=== PATIENT | female | born 1955 | race Native Hawaiian/Other Pacific Islander ===

== ENCOUNTER 2016-06-10 16:56 | Emergency (ER) | payer OTHER, MEDICARE ==
[2016-06-10 17:25] VITALS: BP 126/85; PULSE 67; RESP 18; TEMP 97.6
[2016-06-10] MEDS ORDERED: HYDROmorphone 1 MG/ML 1 ML SYRINGE IM STA (17:36)
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
== END 2016-06-10 18:12 | disposition home or self-care (01) ==
LOC: EC 16:56
DX: G89.29 Other chronic pain (principal); M54.2 Cervicalgia; Z76.0 Encounter for issue of repeat prescription; Z79.899 Other long term (current) drug therapy; Z91.041 Radiographic dye allergy status; Z87.891 Personal history of nicotine dependence; Z88.6 Allergy status to analgesic agent
CPT/HCPCS: 99283; 96372; J1170

== ENCOUNTER → 2016-06-13 | Outpatient (CLI) | payer MEDICARE, OTHER ==
[2016-06-06 10:23] VITALS: BMI 23.8
[2016-06-13 12:26] VITALS: PULSE 61; RESP 16; TEMP 97.7
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
== END | disposition home or self-care (01) ==
LOC: PNWHC3 12:00
PROVIDERS: ATTEND Anesthesiology
DX: M46.92 Unspecified inflammatory spondylopathy, cervical region (principal); Z98.1 Arthrodesis status; E11.9 Type 2 diabetes mellitus without complications; F32.9 Major depressive disorder, single episode, unspecified; I10 Essential (primary) hypertension; Z87.891 Personal history of nicotine dependence; Z79.899 Other long term (current) drug therapy; Z88.8 Allergy status to other drugs, medicaments and biological substances; F12.90 Cannabis use, unspecified, uncomplicated
CPT/HCPCS: 99211

== ENCOUNTER 2016-06-22 18:02 | Emergency (ER) | payer MEDICARE, OTHER ==
[2016-06-22 18:07] VITALS: BP 126/94; PULSE 68; RESP 20; TEMP 97.5
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
[2016-06-22] MEDS ORDERED: HYDROcodone/APAP 5-325MG 1 EACH TAB PO STA (18:31)
== END 2016-06-22 18:39 | disposition home or self-care (01) ==
LOC: EC 18:02
DX: G89.29 Other chronic pain (principal); M54.2 Cervicalgia; M79.601 Pain in right arm; Z88.6 Allergy status to analgesic agent; Z88.8 Allergy status to other drugs, medicaments and biological substances; Z91.041 Radiographic dye allergy status; Z87.891 Personal history of nicotine dependence; Z79.899 Other long term (current) drug therapy
CPT/HCPCS: 99283

== ENCOUNTER → 2016-07-08 | Outpatient (CLI) | payer MEDICARE, OTHER ==
[2016-07-08 10:47] LABS: Blood Urea Nitrogen 16 mg/dL (7-17); Non-African American GFR(MDRD) >60 (>60 ml/min/1.73 sqM)
== END | disposition home or self-care (01) ==
LOC: LABWHC1 09:53
PROVIDERS: ATTEND Orthopaedic Surgery Orthopaedic Surgery of the Spine
DX: Z01.812 Encounter for preprocedural laboratory examination (principal); N28.9 Disorder of kidney and ureter, unspecified
CPT/HCPCS: 36415; 82565; 84520

== ENCOUNTER 2016-07-09 17:45 | Emergency (ER) | payer MEDICARE, OTHER ==
[2016-07-09 18:06] VITALS: TEMP 98.1
[2016-07-09] MEDS ORDERED: BUTALB/APAP/CAFF 50-325-40MG TAB PO STA (19:33)
[2016-07-09] MEDS ORDERED: DEXAMETHASONE 4 MG TAB PO STA (19:33)
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
[2016-07-09 20:02] VITALS: BP 136/87; PULSE 88; RESP 18
== END 2016-07-09 20:05 | disposition home or self-care (01) ==
LOC: EC 17:45
DX: G44.209 Tension-type headache, unspecified, not intractable (principal); M54.2 Cervicalgia; G89.29 Other chronic pain; M25.521 Pain in right elbow; Z79.899 Other long term (current) drug therapy; Z88.6 Allergy status to analgesic agent; Z91.041 Radiographic dye allergy status; Z88.8 Allergy status to other drugs, medicaments and biological substances; Z87.891 Personal history of nicotine dependence
CPT/HCPCS: 99283; J8540

== ENCOUNTER → 2016-08-16 | Outpatient (CLI) | payer MEDICARE ==
--- NOTE | 2016-08-19 08:23 | MM ---
Reason for exam: clinical finding. Last mammogram was performed 2 years and 8 months ago. History: Patient is postmenopausal. Family history of premenopausal breast cancer in mother at age 30. Indicated problem(s): pain in the right breast. Physical Findings: Nurse did not find any significant physical abnormalities on exam. MG 3D Diag Mammo W/Cad GERARD Bilateral CC and MLO view(s) were taken. Prior study comparison: December 06, 2013, bilateral MG screening mammo w CAD. May 19, 2009, bilateral digital screening mammogram. The breast tissue is heterogeneously dense. This may lower the sensitivity of mammography. No significant new findings when compared with previous films. These results were verbally communicated with the patient and result sheet given to the patient on 08/16/16. ASSESSMENT: Benign, BI-RAD 2 RECOMMENDATION: Routine screening mammogram of both breasts in 1 year.
== END | disposition home or self-care (01) ==
LOC: RADMAMWWP 12:49
PROVIDERS: ATTEND Family Medicine
DX: N64.4 Mastodynia (principal); E04.1 Nontoxic single thyroid nodule; R07.9 Chest pain, unspecified
CPT/HCPCS: G0204; G0279

== ENCOUNTER → 2016-08-16 | Outpatient (CLI) | payer MEDICARE ==
[2016-08-16 14:05] LABS: Basophils # (A) 0.1 k/uL (0-0.2); Basophils % (A) 1 %; CH 33.2; CHCM 32.8; Eosinophils # (A) 0.2 k/uL (0-0.7); Eosinophils % (A) 2 %; HCT 47.9 % (34.0-46.0); HDW 2.22; HGB 15.3 gm/dL (11.4-16.0); Luc # (Auto) 0.17; Luc % (Auto) 2; Lymphocytes # (A) 1.8 k/uL (1.0-4.8); Lymphocytes % (A) 25 %; MCH 32.3 pg (25.0-35.0); MCHC 31.8 g/dL (31.0-37.0); MCV 101.6 fL (80.0-100.0); Mean Platelet Volume 7.3; Monocytes # (A) 0.4 k/uL (0-1.0); Monocytes % (A) 5 %; Neutrophils # (A) 4.7 k/uL (1.3-7.7); Neutrophils % (A) 65 %; RBC 4.72 m/uL (3.80-5.40); RDW 11.9 % (11.5-15.5); WBC 7.3 k/uL (3.8-10.6); WBC (Perox) 7.65
[2016-08-16 14:23] LABS: ALT 40 U/L (9-52); AST 40 U/L (14-36); Alkaline Phosphatase 71 U/L (38-126); Anion Gap 11 mmol/L; Blood Urea Nitrogen 16 mg/dL (7-17); Calcium 9.5 mg/dL (8.4-10.2); Carbon Dioxide 30 mmol/L (22-30); Chloride 101 mmol/L (98-107); Glucose 114 mg/dL (74-99); Non-African American GFR(MDRD) >60 (>60 ml/min/1.73 sqM); Potassium 4.2 mmol/L (3.5-5.1); Sodium 142 mmol/L (137-145); Total Bilirubin 0.7 mg/dL (0.2-1.3); Total Protein 7.3 g/dL (6.3-8.2)
== END | disposition home or self-care (01) ==
LOC: LABWHC1 13:45
PROVIDERS: ATTEND Family Medicine
DX: E04.1 Nontoxic single thyroid nodule (principal); R07.9 Chest pain, unspecified; Z79.899 Other long term (current) drug therapy
CPT/HCPCS: 36415; 80053; 84443; 85025

== ENCOUNTER → 2016-08-20 | Outpatient (CLI) | payer MEDICARE ==
--- NOTE | 2016-08-20 20:37 | US ---
EXAMINATION TYPE: US thyroid st tissue head/neck DATE OF EXAM: 08/20/2016 3:07 PM COMPARISON: MRI on PACS CLINICAL HISTORY: E04.1 Nontoxic single thyroid nodule. MRI showed nodule GLAND SIZE: Right Lobe: 4.5 x 1.8 x 2.1 cm Overall Parenchyma: homogenous Left Lobe: 4.4 x 1.6 x 1.6 cm cm Overall Parenchyma: homogeneous Isthmus Thickness: 0.3 cm NODULES RIGHT: # of nodules measured on right: 3 1. 1.1 X 1.3 x 0.9 cm hypoechoic solid nodule at the upper pole with well-defined margins. This no dule is wider than tall and shows intranodular vascularity. Prior size: no prior 2. 0.8 X 0.7 x 0.7 cm hypoechoic solid nodule at the upper pole with well-defined margins. This nod ule is taller than wide and shows intranodular vascularity. Prior size: no prior 3. 1.1 X 0.7 x 0.6 cm hypoechoic complex nodule at the lower pole with well-defined margins. This n odule is taller than wide and shows intranodular vascularity. Prior size: no prior LEFT: # of nodules measured on left: 1 1. 0.4 X 0.4 x 0.3 cm hypoechoic solid nodule at the upper pole with well-defined margins. This no dule is wider than tall and shows no intranodular vascularity. Prior size: no prior ISTHMUS: # of nodules measured in the isthmus: 0 Findings: Bilateral nodules seen. Multiple subcentimeter hypoechoic lesion seen throughout left lobe. IMPRESSION: 1. There are 3 nodules involving the right lobe tube which measure greater than a centimeter. 2. Multiple subcentimeter left-sided thyroid nodules
== END | disposition home or self-care (01) ==
LOC: RADUSWWP 14:25
PROVIDERS: ATTEND Family Medicine
DX: E04.2 Nontoxic multinodular goiter (principal)
CPT/HCPCS: 76536

== ENCOUNTER → 2016-09-06 | Outpatient (CLI) | payer MEDICARE ==
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
--- NOTE | 2016-09-06 14:49 | MR ---
MR lumbar spine wo con Lumbago Multiplanar, multiecho imaging of the lumbar spine was obtained without contrast on a 3 Magda magnet. REFERENCE:None. FINDINGS: Paraspinal soft tissues are normal. There is a mild S-shaped scoliosis convex to the right thoracic region and to the left in the lumbar region. Vertebral body height and alignment are maintained. Cord signal is maintained. The conus ends normally at the level of the mid body of L1. At T12-L1, there is mild hypertrophic changes within the facets. At L1-2, there is mild hypertrophic changes within the facets. At L2-3, the intervertebral foramina are patent. There is a broad-based disc protrusion deforming the thecal sac. There are hypertrophic changes in the facets. There is mild central canal stenosis. At L3-4, there is severe disc space loss. There is mild, bilateral intervertebral foraminal narrowing . There is hypertrophic spondylosis anteriorly and posteriorly. This hypertrophic changes in the face ts. There is mild trefoiling of the thecal sac. At L4-5, there is disc space loss. There is a broad-based disc displacement. The intervertebral dano jordyn are reasonably well-maintained. There are hypertrophic changes in the facets. There is moderate c entral canal compromise. At L5-S1, there is hypertrophic change within the facets. IMPRESSION: 1. DIFFUSE DEGENERATIVE DISC DISEASE AND FACET ARTHROPATHY. 2. BILATERAL INTERVERTEBRAL FORAMINAL NARROWING, L3-4. 3. BROAD-BASED DISC PROTRUSION, L2-3. 4. VARYING DEGREES OF CENTRAL CANAL COMPROMISE MOST MARKED AT L4-5.
== END | disposition home or self-care (01) ==
LOC: RADMRIMAIN 13:12
PROVIDERS: ATTEND Psychiatry & Neurology Pain Medicine
DX: R90.82 White matter disease, unspecified (principal); M99.73 Connective tissue and disc stenosis of intervertebral foramina of lumbar region; M51.26 Other intervertebral disc displacement, lumbar region; M51.36 Other intervertebral disc degeneration, lumbar region; M46.96 Unspecified inflammatory spondylopathy, lumbar region
CPT/HCPCS: 70553; 72148; A9577

== ENCOUNTER 2016-11-05 11:45 | Day surgery (SDC) | payer MEDICARE ==
[2016-11-05 12:42] VITALS: RESP 14; TEMP 97.7
[2016-11-05] MEDS ORDERED: ALPRAZolam 0.5 MG TAB PO STA (12:52)
[2016-11-05 14:00] VITALS: BP 133/78; PULSE 62
--- NOTE | 2016-11-05 14:58 | US ---
EXAMINATION TYPE: US FNA thyroid DATE OF EXAM: 11/05/2016 COMPARISON: NONE HISTORY: Thyroid nodule. Maximal barrier technique was utilized. After informed consent, skin overlying the lesion was locali zed with ultrasound and the overlying skin prepped and draped. Ultrasound was utilized using sterile technique. Lidocaine was used for local anesthesia. Four passes with a 25-gauge needle were made into the nodule and aspirated specimen was submitted to cytology. Following the procedure hemostasis ach ieved. No immediate complication. The patient discharged in stable condition. IMPRESSION: STATUS POST ULTRASOUND GUIDED FINE NEEDLE ASPIRATION OF THYROID NODULE, PATHOLOGY IS PEND ING. THIS PROCEDURE WAS PERFORMED BY THE UNDERSIGNED.
--- NOTE | 2016-11-05 15:01 | US ---
EXAMINATION TYPE: US fine needle aspiration DATE OF EXAM: 11/05/2016 COMPARISON: NONE HISTORY: Thyroid nodule. Maximal barrier technique was utilized. After informed consent, skin overlying the lesion was locali zed with ultrasound and the overlying skin prepped and draped. Ultrasound was utilized using sterile technique. Lidocaine was used for local anesthesia. Four passes with a 25-gauge needle were made int o the the second lower pole right lobe thyroid nodule and aspirated specimen was submitted to cytolog y. Following the procedure hemostasis achieved. No immediate complication. The patient discharged in stable condition. IMPRESSION: STATUS POST ULTRASOUND GUIDED FINE NEEDLE ASPIRATION OF THYROID NODULE, PATHOLOGY IS PEND ING. THIS PROCEDURE WAS PERFORMED BY THE UNDERSIGNED.
== END 2016-11-05 14:03 | disposition home or self-care (01) ==
LOC: RADPROMAIN 11:45
PROVIDERS: ATTEND Surgery
DX: E04.2 Nontoxic multinodular goiter (principal)
CPT/HCPCS: 10022; 76942; 88173; 88305

== ENCOUNTER → 2016-12-04 | Outpatient (CLI) | payer MEDICARE ==
[2016-12-04 11:10] LABS: C Reactive Protein <5.0 mg/L (<10.0)
[2016-12-04 11:57] LABS: Vitamin B12 372 pg/mL (239-931)
[2016-12-06 14:20] LABS: Lyme IgG/IgM 0.1 Index; Lyme IgG/IgM Interp NEGATIVE (NEGATIVE)
== END | disposition home or self-care (01) ==
LOC: LABWHC1 10:02
PROVIDERS: ATTEND Psychiatry & Neurology Pain Medicine
DX: R42 Dizziness and giddiness (principal); M62.81 Muscle weakness (generalized); R53.83 Other fatigue; M19.90 Unspecified osteoarthritis, unspecified site; Z79.899 Other long term (current) drug therapy
CPT/HCPCS: 36415; 82607; 83605; 84439; 84443; 84481; 85652; 86140; 86618; 87390

== ENCOUNTER 2016-12-23 17:36 | Emergency (ER) | payer MEDICARE, OTHER ==
[2016-12-23 18:12] VITALS: BP 125/66; PULSE 63; RESP 16; TEMP 98.3
--- NOTE | 2016-12-23 19:09 | XR ---
EXAMINATION TYPE: XR elbow complete RT DATE OF EXAM: 12/23/2016 COMPARISON: NONE HISTORY: Pain TECHNIQUE: 3 views FINDINGS: I see no fracture nor dislocation. Joint spaces are normal. There is no sign of joint effus ion. IMPRESSION: Normal right elbow.
--- NOTE | 2016-12-23 19:09 | XR ---
EXAMINATION TYPE: XR forearm RT DATE OF EXAM: 12/23/2016 COMPARISON: NONE HISTORY: Pain TECHNIQUE: 2 views FINDINGS: I see no fracture nor dislocation. Wrist joint and elbow joint appear intact. IMPRESSION: Negative right forearm exam.
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
== END 2016-12-23 19:25 | disposition home or self-care (01) ==
LOC: EC 17:36
DX: S50.01XA Contusion of right elbow, initial encounter (principal); S50.11XA Contusion of right forearm, initial encounter; I10 Essential (primary) hypertension; Z87.891 Personal history of nicotine dependence; Z79.891 Long term (current) use of opiate analgesic; Z79.899 Other long term (current) drug therapy; Z88.6 Allergy status to analgesic agent; Z91.041 Radiographic dye allergy status; Z91.048 Other nonmedicinal substance allergy status; Z87.39 Personal history of other diseases of the musculoskeletal system and connective tissue; Z98.890 Other specified postprocedural states; W18.09XA Striking against other object with subsequent fall, initial encounter; Y92.89 Other specified places as the place of occurrence of the external cause; Y93.89 Activity, other specified
CPT/HCPCS: 99283

== ENCOUNTER → 2017-03-17 | Outpatient (CLI) | payer MEDICARE ==
[2017-03-17 12:10] LABS: CH 34.3; CHCM 33.6; HCT 45.9 % (34.0-46.0); HDW 2.21; HGB 15.1 gm/dL (11.4-16.0); MCH 33.7 pg (25.0-35.0); MCHC 32.9 g/dL (31.0-37.0); MCV 102.6 fL (80.0-100.0); Macrocytosis Slight; Mean Platelet Volume 8.6; RBC 4.48 m/uL (3.80-5.40); WBC 7.8 k/uL (3.8-10.6)
[2017-03-17 13:55] LABS: ALT 39 U/L (9-52); AST 26 U/L (14-36); Alkaline Phosphatase 86 U/L (38-126); Anion Gap 8 mmol/L; Blood Urea Nitrogen 9 mg/dL (7-17); Calcium 9.8 mg/dL (8.4-10.2); Carbon Dioxide 28 mmol/L (22-30); Chloride 103 mmol/L (98-107); Glucose 95 mg/dL (74-99); Non-African American GFR(MDRD) >60 (>60 ml/min/1.73 sqM); Potassium 4.4 mmol/L (3.5-5.1); Sodium 139 mmol/L (137-145); Total Bilirubin 0.6 mg/dL (0.2-1.3)
[2017-03-17 14:25] LABS: Vitamin B12 289 pg/mL (239-931)
[2017-03-17 14:51] LABS: Hemoglobin A1C 5.6 % (4.2-6.1)
== END | disposition home or self-care (01) ==
LOC: LABWHC1 11:34
PROVIDERS: ATTEND Psychiatry & Neurology Pain Medicine
DX: E55.9 Vitamin D deficiency, unspecified (principal); G62.9 Polyneuropathy, unspecified
CPT/HCPCS: 36415; 80053; 82306; 82607; 83036; 85027

== ENCOUNTER → 2017-07-18 | Outpatient (CLI) | payer MEDICARE | END | disposition home or self-care (01) | LOC: LABWHC1 10:43 | PROVIDERS: ATTEND Psychiatry & Neurology Neurology | DX: E55.9 Vitamin D deficiency, unspecified (principal) | CPT/HCPCS: 36415; 82306 ==

== ENCOUNTER 2017-09-13 09:08 | Emergency (ER) | payer MEDICARE ==
[2017-09-13 09:16] VITALS: BP 130/74; PULSE 61; RESP 18; TEMP 96.7
--- NOTE | 2017-09-13 09:47 | ED ---
General Adult HPI - General Chief complaint: Eye Problems Stated complaint: foreign body in lt eye Time Seen by Provider: 09/13/17 09:25 Source: patient, RN notes reviewed Mode of arrival: ambulatory Limitations: no limitations - History of Present Illness Initial comments: Patient 62-year-old female presenting to the emergency room today with a chief complaint of itching to the left eye and then was seen some blood. Patient states that she has no vision changes. She states it was itchy this morning she was scratching at the area rubbing it. She's been noticed that there is some blood. Patient denies any other complaints or symptoms. Patient denies any recent fever, chills, shortness of breath, chest pain, back pain, abdominal pain, nausea or vomiting, numbness or tingling, headaches or visual changes, or any other complaints. - Related Data Home Medications Medication Instructions Recorded Confirmed Gabapentin [Neurontin] 600 mg PO HS 06/10/16 04/04/17 Atenolol 100 mg PO DAILY 10/17/16 04/04/17 Cyclobenzaprine [Flexeril] 10 mg PO TID 10/17/16 04/04/17 HYDROcodone/APAP 5-325MG [[place] 1 tab PO BID 10/17/16 04/04/17 5-325] Ranitidine HCl [Zantac] 150 mg PO BID 04/04/17 04/04/17 Allergies Allergy/AdvReac Type Severity Reaction Status Date / Time aspirin Allergy Rash/Hives/ Verified 09/13/17 09:16 Swelling Iodinated Contrast- Oral and Allergy Rash/Hives Verified 09/13/17 09:16 IV Dye [Iodinated Contrast Media - IV Dye] iodine Allergy Rash/Hives Verified 09/13/17 09:16 ibuprofen [From Motrin] AdvReac Rapid Verified 09/13/17 09:16 Heart Rate Review of Systems ROS Statement: Those systems with pertinent positive or pertinent negative responses have been documented in the HPI. ROS Other: All systems not noted in ROS Statement are negative. Past Medical History Past Medical History: Diabetes Mellitus, Hypertension, Vascular Disorder Additional Past Medical History / Comment(s): diabetes- diet controlled, pain: rt side of chest to back,rt arm, rt collar bone, elbow,shoulder,spine, migraines , possible MS currently being worked up, possible lymes disease. History of Any Multi-Drug Resistant Organisms: None Reported Past Surgical History: Cholecystectomy, Hysterectomy Additional Past Surgical History / Comment(s): elbow surgery, foot surgery bunion and hammer toe surgery,neck fusion Past Anesthesia/Blood Transfusion Reactions: No Reported Reaction Past Psychological History: Depression Smoking Status: Former smoker Past Alcohol Use History: None Reported Past Drug Use History: None Reported - Past Family History Mother Family Medical History: Cancer Additional Family Medical History / Comment(s): breast cancer Brother(s) Family Medical History: Cancer Additional Family Medical History / Comment(s): 1st brother-kidney, lung cancer , 2nd brother blood cancer General Exam - General Exam Comments Initial Comments: General: The patient is awake and alert, in no distress, and does not appear acutely ill. Eye: Pupils are equal, round and reactive to light, extra-ocular movements are intact. No nystagmus. Patient's right conjunctiva is clear. Left conjunctiva does show a subconjunctival hemorrhage on the lateral side. Non-circumferential Ears, nose, mouth and throat: There are moist mucous membranes and no oral lesions. Neck: The neck is supple, there is no tenderness or JVD. Musculoskeletal: Normal ROM, no tenderness. Strength 5/5. Sensation intact. Pulses equal bilaterally 2+. Neurological: A&O x 3. CN II-XII intact, There are no obvious motor or sensory deficits. Coordination appears grossly intact. Speech is normal. Skin: Skin is warm and dry and no rashes or lesions are noted. Psychiatric: Cooperative, appropriate mood & affect, normal judgment. Limitations: no limitations Course Vital Signs 09/13/17 09:14 Temperature 96.7 F L Pulse Rate 61 Respiratory 18 Rate Blood Pressure 130/74 O2 Sat by Pulse 97 Oximetry Medical Decision Making - Medical Decision Making Patient physical exam findings are consistent with a subconjunctival hemorrhage. There is no visual changes. Grossly intact. Patient advised to return if any symptoms increase or worsen. Disposition Clinical Impression: Subconjunctival hemorrhage Disposition: HOME SELF-CARE Condition: Good Instructions: Subconjunctival Hemorrhage (ED) Additional Instructions: Please return to emergency room if any symptoms increase worsen or for any other concerns. Referrals: John Redd Jr, DO [Primary Care Provider] - 1-2 days Time of Disposition: 09:46
== END 2017-09-13 09:59 | disposition home or self-care (01) ==
LOC: EC 09:08
DX: H11.32 Conjunctival hemorrhage, left eye (principal); I10 Essential (primary) hypertension; Z87.891 Personal history of nicotine dependence; Z79.891 Long term (current) use of opiate analgesic; Z79.899 Other long term (current) drug therapy; Z88.6 Allergy status to analgesic agent; Z91.041 Radiographic dye allergy status; Z88.8 Allergy status to other drugs, medicaments and biological substances
CPT/HCPCS: 99283

== ENCOUNTER → 2017-11-13 | Outpatient (CLI) | payer MEDICARE ==
[2017-11-13 15:20] LABS: Albumin 4.1 g/dL (3.5-5.0); Calcium 9.4 mg/dL (8.4-10.2); Potassium 3.7 mmol/L (3.5-5.1); Total Bilirubin 0.7 mg/dL (0.2-1.3); Total Protein 6.6 g/dL (6.3-8.2)
== END | disposition home or self-care (01) ==
LOC: LABWHC1 14:23
PROVIDERS: ATTEND Psychiatry & Neurology Pain Medicine
DX: M79.1 Myalgia (principal)
CPT/HCPCS: 36415; 80053; 82550

== ENCOUNTER → 2017-11-21 | Outpatient (CLI) | payer MEDICARE ==
--- NOTE | 2017-11-25 10:51 | P.ARTDOP ---
Arterial Doppler Upper EXTREMITY ARTERIAL DOPPLER: DATE OF SERVICE: 11/21/2017 Reason for study: Upper extremity numbness. Doppler waveforms: Multiphasic bilaterally throughout. Pulse volume recording: Normal configuration. Pressure gradients: No significant right to left or segmental pressure gradients. Impression: Normal study.
== END | disposition home or self-care (01) ==
LOC: RADUSWWP 14:22
PROVIDERS: ATTEND Psychiatry & Neurology Neurology
DX: R20.2 Paresthesia of skin (principal)
CPT/HCPCS: 93923

== ENCOUNTER 2019-02-12 10:27 | Emergency (ER) | payer MEDICARE ==
[2019-02-12 10:33] VITALS: RESP 18
[2019-02-12] MEDS ORDERED: ONDANSETRON 4 MG/2 ML VIAL IVP STA (10:59)
[2019-02-12] MEDS ORDERED: MORPHINE SULFATE 4 MG/ML SYRINGE IVP STA (10:59)
[2019-02-12] MEDS ORDERED: SODIUM CHLORIDE 0.9% 1,000 ML IV STA (11:00)
--- NOTE | 2019-02-12 11:03 | ED ---
General Adult HPI - General Chief complaint: Urogenital Stated complaint: back pain Time Seen by Provider: 02/12/19 10:36 Source: patient Mode of arrival: ambulatory Limitations: no limitations - History of Present Illness Initial comments: Patient is a 64-year-old female presenting to the emergency Department with complaints of right-sided low back pain that has been intermittent for 1 week. Patient states she has a history of kidney stones and this pain feels similar. Patient states she does have a history of lumbar DDD but states this pain feels different than her normal pain. Patient states she took a [place] this morning it did not help with her symptoms. Patient denies any fever, chills, nausea, vomiting. Patient does admit to an increase in urinary frequency for the last week. Patient denies any burning or blood in urine. Patient has been having regular bowel movements. Patient has no other complaints at this time. Upon arrival to ER, BP is 169/87, rest of vital signs are within normal limits. - Related Data Home Medications Medication Instructions Recorded Confirmed Gabapentin [Neurontin] 600 mg PO HS 06/10/16 04/04/17 Atenolol 100 mg PO DAILY 10/17/16 04/04/17 Cyclobenzaprine [Flexeril] 10 mg PO TID 10/17/16 04/04/17 HYDROcodone/APAP 5-325MG [[place] 1 tab PO BID 10/17/16 04/04/17 5-325] Ranitidine HCl [Zantac] 150 mg PO BID 04/04/17 04/04/17 Allergies Allergy/AdvReac Type Severity Reaction Status Date / Time aspirin Allergy Rash/Hives/ Verified 02/12/19 10:33 Swelling Iodinated Contrast- Oral and Allergy Rash/Hives Verified 02/12/19 10:33 IV Dye [Iodinated Contrast Media - IV Dye] iodine Allergy Rash/Hives Verified 02/12/19 10:33 ibuprofen [From Motrin] AdvReac Rapid Verified 02/12/19 10:33 Heart Rate Review of Systems ROS Statement: Those systems with pertinent positive or pertinent negative responses have been documented in the HPI. ROS Other: All systems not noted in ROS Statement are negative. Past Medical History Past Medical History: Diabetes Mellitus, Hypertension, Vascular Disorder Additional Past Medical History / Comment(s): diabetes- diet controlled, pain: rt side of chest to back,rt arm, rt collar bone, elbow,shoulder,spine, migraine s, kidney stones History of Any Multi-Drug Resistant Organisms: None Reported Past Surgical History: Cholecystectomy, Hysterectomy Additional Past Surgical History / Comment(s): elbow surgery, foot surgery bunion and hammer toe surgery,neck fusion Past Anesthesia/Blood Transfusion Reactions: No Reported Reaction Past Psychological History: Depression Smoking Status: Former smoker Past Alcohol Use History: None Reported Past Drug Use History: None Reported - Past Family History Mother Family Medical History: Cancer Additional Family Medical History / Comment(s): breast cancer Brother(s) Family Medical History: Cancer Additional Family Medical History / Comment(s): 1st brother-kidney, lung cancer, 2nd brother blood cancer General Exam - General Exam Comments Initial Comments: GENERAL: Well-appearing, well-nourished and in no acute distress. HEAD: Atraumatic, normocephalic. EYES: Pupils equal round and reactive to light, extraocular movements intact, sclera anicteric, conjunctiva are normal. ENT: TMs normal, nares patent, oropharynx clear without exudates. Moist mucous membranes. NECK: Normal range of motion, supple without lymphadenopathy or JVD. LUNGS: Breath sounds clear to auscultation bilaterally and equal. No wheezes rales or rhonchi. HEART: Regular rate and rhythm without murmurs, rubs or gallops. ABDOMEN: Mild tenderness to palpation in the suprapubic and right lower quadrant. Soft, normoactive bowel sounds. No guarding, no rebound. No masses appreciated. : Deferred EXTREMITIES: Normal range of motion, no pitting or edema. No clubbing or cyanosis. Normal trunk range of motion. Pain with palpation in the right CVA area, right lumbar paraspinals. NEUROLOGICAL: Cranial nerves II through XII grossly intact. Normal speech, normal gait. PSYCH: Normal mood, normal affect. SKIN: Warm, Dry, normal turgor, no rashes or lesions noted. Limitations: no limitations Course Vital Signs 02/12/19 02/12/19 10:28 12:41 Temperature 97.7 F 98 F Pulse Rate 52 L 65 Respiratory 18 18 Rate Blood Pressure 169/87 141/90 O2 Sat by Pulse 99 98 Oximetry Medical Decision Making - Medical Decision Making Patient is a 64-year-old female presenting with right-sided low back pain and flank pain has been intermittent for 1 week. Patient admits to history of kidney stones. Patient also has history of lumbar DDD. On exam patient has tenderness of the right flank and right lumbar paraspinals. Patient has mild t enderness suprapubic and right lower quadrant. CBC, CMP, lactic acid are all within normal limits. UA shows very small amount of blood, no signs of infection. CT the abdomen shows a 3 mm nonobstructing renal right calculus. A 6 mm lesion on the left kidney most likely a cyst. Diverticulosis without acute diverticulitis. Discussed with patient that her pains most likely due to muscle skeletal strain possible renal stone pain. Patient received pain medication and reports improvement in symptoms. Patient will continue with her pain medication at home and increase her fluid intake. Patient is stable for discharge at this time. Return parameters were discussed with the patient she verbalized understanding. Case discussed with Dr. Jimenez. - Lab Data Result diagrams: 02/12/19 11:08 02/12/19 11:08 Lab Results 02/12/19 02/12/19 02/12/19 Range/Units 11:08 11:08 11:08 WBC 8.5 (3.8-10.6) k/uL RBC 4.94 (3.80-5.40) m/uL Hgb 16.3 H (11.4-16.0) gm/dL Hct 48.8 H (34.0-46.0) % MCV 98.8 (80.0-100.0) fL MCH 33.0 (25.0-35.0) pg MCHC 33.4 (31.0-37.0) g/dL RDW 13.8 (11.5-15.5) % Plt Count 181 (150-450) k/uL Neutrophils % 66 % Lymphocytes % 23 % Monocytes % 6 % Eosinophils % 3 % Basophils % 1 % Neutrophils # 5.6 (1.3-7.7) k/uL Lymphocytes # 2.0 (1.0-4.8) k/uL Monocytes # 0.5 (0-1.0) k/uL Eosinophils # 0.2 (0-0.7) k/uL Basophils # 0.1 (0-0.2) k/uL Sodium 140 (137-145) mmol/L Potassium 4.5 (3.5-5.1) mmol/L Chloride 105 (98-107) mmol/L Carbon Dioxide 26 (22-30) mmol/L Anion Gap 9 mmol/L BUN 16 (7-17) mg/dL Creatinine 0.89 (0.52-1.04) mg/dL Est GFR (CKD-EPI)AfAm 79 (>60 ml/min/1.73 sqM) Est GFR (CKD-EPI)NonAf 69 (>60 ml/min/1.73 sqM) Glucose 111 H (74-99) mg/dL Plasma Lactic Acid Daniel 1.0 (0.7-2.0) mmol/L Calcium 10.0 (8.4-10.2) mg/dL Total Bilirubin 0.9 (0.2-1.3) mg/dL AST 27 (14-36) U/L ALT 22 (9-52) U/L Alkaline Phosphatase 64 (38-126) U/L Total Protein 7.4 (6.3-8.2) g/dL Albumin 4.4 (3.5-5.0) g/dL Urine Color Urine Appearance (Clear) Urine pH (5.0-8.0) Ur Specific [place] (1.001-1.035) Urine Protein (Negative) Urine Glucose (UA) (Negative) Urine Ketones (Negative) Urine Blood (Negative) Urine Nitrite (Negative) Urine Bilirubin (Negative) Urine Urobilinogen (<2.0) mg/dL Ur Leukocyte Esterase (Negative) Urine RBC (0-5) /hpf Urine WBC (0-5) /hpf Ur Squamous Epith Cells (0-4) /hpf Urine Mucus (None) /hpf 02/12/19 Range/Units 11:08 WBC (3.8-10.6) k/uL RBC (3.80-5.40) m/uL Hgb (11.4-16.0) gm/dL Hct (34.0-46.0) % MCV (80.0-100.0) fL MCH (25.0-35.0) pg MCHC (31.0-37.0) g/dL RDW (11.5-15.5) % Plt Count (150-450) k/uL Neutrophils % % Lymphocytes % % Monocytes % % Eosinophils % % Basophils % % Neutrophils # (1.3-7.7) k/uL Lymphocytes # (1.0-4.8) k/uL Monocytes # (0-1.0) k/uL Eosinophils # (0-0.7) k/uL Basophils # (0-0.2) k/uL Sodium (137-145) mmol/L Potassium (3.5-5.1) mmol/L Chloride (98-107) mmol/L Carbon Dioxide (22-30) mmol/L Anion Gap mmol/L BUN (7-17) mg/dL Creatinine (0.52-1.04) mg/dL Est GFR (CKD-EPI)AfAm (>60 ml/min/1.73 sqM) Est GFR (CKD-EPI)NonAf (>60 ml/min/1.73 sqM) Glucose (74-99) mg/dL Plasma Lactic Acid Daniel (0.7-2.0) mmol/L Calcium (8.4-10.2) mg/dL Total Bilirubin (0.2-1.3) mg/dL AST (14-36) U/L ALT (9-52) U/L Alkaline Phosphatase (38-126) U/L Total Protein (6.3-8.2) g/dL Albumin (3.5-5.0) g/dL Urine Color Light Yellow Urine Appearance Clear (Clear) Urine pH 5.5 (5.0-8.0) Ur Specific [place] 1.008 (1.001-1.035) Urine Protein Negative (Negative) Urine Glucose (UA) Negative (Negative) Urine Ketones Negative (Negative) Urine Blood Small H (Negative) Urine Nitrite Negative (Negative) Urine Bilirubin Negative (Negative) Urine Urobilinogen <2.0 (<2.0) mg/dL Ur Leukocyte Esterase Negative (Negative) Urine RBC 1 (0-5) /hpf Urine WBC <1 (0-5) /hpf Ur Squamous Epith Cells 2 (0-4) /hpf Urine Mucus Rare H (None) /hpf Disposition Clinical Impression: Renal calculus, right, Low back pain Disposition: HOME SELF-CARE Condition: Stable Instructions (If sedation given, give patient instructions): Acute Low Back Pain (ED) Additional Instructions: Please return to the Emergency Department if symptoms worsen or any other concerns. Continue to increase fluids. Use NSAIDs as discussed for pain relief. Trial of heat and ice the areas well. Follow-up with back doctor as discussed. Is patient prescribed a controlled substance at d/c from ED?: No Referrals: John Redd Jr, DO [Primary Care Provider] - 1-2 days
[2019-02-12 11:36] LABS: Basophils # (A) 0.1 k/uL (0-0.2); Basophils % (A) 1 %; Eosinophils # (A) 0.2 k/uL (0-0.7); Eosinophils % (A) 3 %; HCT 48.8 % (34.0-46.0); HGB 16.3 gm/dL (11.4-16.0); Lymphocytes % (A) 23 %; MCHC 33.4 g/dL (31.0-37.0); MCV 98.8 fL (80.0-100.0); Mean Platelet Volume 8.5; Monocytes # (A) 0.5 k/uL (0-1.0); Monocytes % (A) 6 %; Neutrophils # (A) 5.6 k/uL (1.3-7.7); Neutrophils % (A) 66 %; Platelet Count 181 k/uL (150-450); RBC 4.94 m/uL (3.80-5.40); RDW 13.8 % (11.5-15.5); WBC 8.5 k/uL (3.8-10.6)
[2019-02-12 11:39] LABS: Albumin 4.4 g/dL (3.5-5.0); Potassium 4.5 mmol/L (3.5-5.1); Total Bilirubin 0.9 mg/dL (0.2-1.3); Total Protein 7.4 g/dL (6.3-8.2)
[2019-02-12 11:42] LABS: Appearance,Urine Clear (Clear); Bilirubin,Urine Negative (Negative); Blood,Urine Small (Negative); Color,Urine Light Yellow; Glucose,Urine (UA) Negative (Negative); Ketones,Urine Negative (Negative); Leukocyte Esterase,Urine Negative (Negative); Mucus,Urine Rare /hpf; Nitrite,Urine Negative (Negative); PH, Urine 5.5 (5.0-8.0); Protein,Urine Negative (Negative); RBC,Urine 1 /hpf (0-5); Specific Gravity,Urine 1.008 (1.001-1.035); Squamous Epithelial Cell,Urine 2 /hpf (0-4); Urobilinogen,Urine <2.0 mg/dL (<2.0)
--- NOTE | 2019-02-12 11:45 | CT ---
EXAMINATION TYPE: CT abdomen pelvis wo con DATE OF EXAM: 02/12/2019 COMPARISON: None HISTORY: 64-year-old female bilateral flank pain, frequent urination CT DLP: 365.1 mGycm. Automated exposure control for dose reduction was used. TECHNIQUE: Contiguous axial scanning of the abdomen and pelvis without IV contrast. Coronal and sagit nawaf reconstructions performed. FINDINGS: Heart normal size without pericardial effusion. Some hazy dependent atelectasis posterior lung bases. No pleural effusion. Difficult to exclude subtle scattered subcentimeter hypodense lesions in the liver on this noncontras t study. Underlying small cysts are possible. Cholecystectomy clips. Spleen with inferior splenules, and pancreas show no gross abnormality by noncontrast CT. Diverticulum of the second portion of the duodenum projecting into the pancreatic head region. 3 mm nonobstructive calculus right kidney. Tiny 6 mm hyperdense lesion along the lateral cortex of le ft kidney likely tiny hemorrhagic cyst. No hydronephrosis on either side. No dilated small bowel, free fluid, or free air. Normal appendix. Some liquid stool within the right side of the colon. Difficult to exclude some mild jejunal fold thi ckening in the left side of the abdomen. Mild overall stool burden throughout the remainder of the co christi. Sigmoid diverticulosis without pericolonic inflammatory change. No mesenteric or retroperitoneal lymphadenopathy identified. Mild circumferential bladder wall thickening. Multiple pelvic phleboliths. Uterus surgically absent. No abnormal fluid collection the pelvis. Difficult to delineate the ovaries from nonopacified bowel l oops. Bones: Advanced degenerative disc disease L3-L4 levels. Hypertrophic facet arthropathy. IMPRESSION: 1. Mild circumferential bladder wall thickening. Correlate to exclude cystitis. 2. Punctate 3 mm nonobstructive right renal calculus. A 6 mm cortical hyperdense lesion laterally in the left kidney likely tiny hemorrhagic cysts. No hydronephrosis on either side. 3. Some liquid stool in the right side of the colon. There may be some mild jejunal fold thickening in the left side of the abdomen. Correlate for possible nonspecific enteritis. 4. Sigmoid diverticulosis without evidence for acute diverticulitis.
[2019-02-12 12:42] VITALS: BP 141/90; PULSE 65; TEMP 98
== END 2019-02-12 12:41 | disposition home or self-care (01) ==
LOC: EC 10:27
DX: N20.0 Calculus of kidney (principal); K57.30 Diverticulosis of large intestine without perforation or abscess without bleeding; I10 Essential (primary) hypertension; E11.9 Type 2 diabetes mellitus without complications; Z79.899 Other long term (current) drug therapy; Z88.6 Allergy status to analgesic agent; Z91.041 Radiographic dye allergy status; Z87.891 Personal history of nicotine dependence; Z98.1 Arthrodesis status
CPT/HCPCS: 99284; 96374; 96375; 36415; 80053; 83605; 85025; 81001; 74176; 96361; J2270; J2405

== ENCOUNTER 2020-01-06 13:39 | Emergency (ER) | payer MEDICARE ==
[2020-01-06 13:45] VITALS: RESP 18
--- NOTE | 2020-01-06 14:32 | ED ---
General Adult HPI - General Chief complaint: Abdominal Pain Stated complaint: left side abdominal pain Time Seen by Provider: 01/06/20 13:53 Source: patient, RN notes reviewed, old records reviewed Mode of arrival: ambulatory Limitations: no limitations - History of Present Illness Initial comments: 65 -year-old female presenting for evaluation of left-sided upper abdominal pain which is been present for the past one month. Patient states she has had a 15 pound weight loss and anorexia over this time. Her brother has history of colon cancer and at the age of 36. She denies central chest pain. She denies vomiting but states she has very early satiety. She's had loose stools over this period of time. No rectal bleeding. No fever. - Related Data Home Medications Medication Instructions Recorded Confirmed atenoloL [Atenolol] 100 mg PO DAILY 10/17/16 01/06/20 HYDROcodone/APAP 10-325MG [[place] 1 tab PO QID 01/06/20 01/06/20 10-325] Allergies Allergy/AdvReac Type Severity Reaction Status Date / Time aspirin Allergy Rash/Hives/ Verified 01/06/20 15:39 Swelling Iodinated Contrast Media Allergy Rash/Hives Verified 01/06/20 15:39 [Iodinated Contrast Media - IV Dye] iodine Allergy Rash/Hives Verified 01/06/20 15:39 ibuprofen [From Motrin] AdvReac Rapid Verified 01/06/20 15:39 Heart Rate Review of Systems ROS Statement: Those systems with pertinent positive or pertinent negative responses have been documented in the HPI. ROS Other: All systems not noted in ROS Statement are negative. Past Medical History Past Medical History: Diabetes Mellitus, Hypertension, Vascular Disorder Additional Past Medical History / Comment(s): diabetes- diet controlled, pain: rt side of chest to back,rt arm, rt collar bone, elbow,shoulder,spine, migraines, kidney stones History of Any Multi-Drug Resistant Organisms: None Reported Past Surgical History: Cholecystectomy, Hysterectomy Additional Past Surgical History / Comment(s): elbow surgery, foot surgery bunion and hammer toe surgery,neck fusion Past Anesthesia/Blood Transfusion Reactions: No Reported Reaction Past Psychological History: Depression Smoking Status: Never smoker Past Alcohol Use History: None Reported Past Drug Use History: None Reported - Past Family History Mother Family Medical History: Cancer Additional Family Medical History / Comment(s): breast cancer Brother(s) Family Medical History: Cancer Additional Family Medical History / Comment(s): 1st brother-kidney, lung cancer, 2nd brother blood cancer General Exam Limitations: no limitations General appearance: alert, in no apparent distress Head exam: Present: atraumatic, normocephalic Eye exam: Present: normal appearance, PERRL, EOMI ENT exam: Present: normal exam Neck exam: Present: normal inspection. Absent: tenderness, meningismus Respiratory exam: Present: normal lung sounds bilaterally. Absent: respiratory distress, wheezes Cardiovascular Exam: Present: regular rate, normal rhythm GI/Abdominal exam: Present: soft. Absent: distended, tenderness, guarding Extremities exam: Present: normal inspection, normal capillary refill. Absent: pedal edema Back exam: Present: normal inspection Neurological exam: Present: alert, oriented X3, CN II-XII intact. Absent: motor sensory deficit Psychiatric exam: Present: normal affect, normal mood Skin exam: Present: warm, dry, intact. Absent: cyanosis, diaphoretic Course Vital Signs 01/06/20 13:43 Temperature 98.5 F Pulse Rate 59 L Respiratory 18 Rate Blood Pressure 141/74 O2 Sat by Pulse 100 Oximetry Medical Decision Making - Medical Decision Making 65-year-old female with one month of abdominal pain and weight loss. Patient well-appearing with stable vitals. CT performed of the abdomen shows a 6 mm lesion in the left kidney which will require follow-up, patient is informed of this. Additionally her sugar is mildly elevated 156 with a history of diabetes. Otherwise laboratory testing is unremarkable. No acute findings on CT. Patient will follow-up with her primary care physician. It is recommended the patient follow with gastroenterology for colonoscopy as it is been some time since she has had a colonoscopy and does have a family history of colon cancer. Patient was premedicated for CT including 50 mg of Benadryl. She did drive to the hospital but is able to call for a ride. She states she will call for a ride this is clinically indicated both her nurse in the triage nurse. She will not be driving. - Lab Data Result diagrams: 01/06/20 14:29 01/06/20 14:29 Lab Results 01/06/20 01/06/20 01/06/20 Range/Units 14:29 14:29 14:29 WBC 7.2 (3.8-10.6) k/uL RBC 4.70 (3.80-5.40) m/uL Hgb 15.3 (11.4-16.0) gm/dL Hct 47.0 H (34.0-46.0) % MCV 100.0 (80.0-100.0) fL MCH 32.6 (25.0-35.0) pg MCHC 32.6 (31.0-37.0) g/dL RDW 11.8 (11.5-15.5) % Plt Count 163 (150-450) k/uL Neutrophils % 52 % Lymphocytes % 36 % Monocytes % 7 % Eosinophils % 3 % Basophils % 1 % Neutrophils # 3.7 (1.3-7.7) k/uL Lymphocytes # 2.6 (1.0-4.8) k/uL Monocytes # 0.5 (0-1.0) k/uL Eosinophils # 0.2 (0-0.7) k/uL Basophils # 0.1 (0-0.2) k/uL Sodium 139 (137-145) mmol/L Potassium 3.6 (3.5-5.1) mmol/L Chloride 106 (98-107) mmol/L Carbon Dioxide 26 (22-30) mmol/L Anion Gap 7 mmol/L BUN 13 (7-17) mg/dL Creatinine 0.94 (0.52-1.04) mg/dL Est GFR (CKD-EPI)AfAm 74 (>60 ml/min/1.73 sqM) Est GFR (CKD-EPI)NonAf 64 (>60 ml/min/1.73 sqM) Glucose 156 H (74-99) mg/dL Calcium 9.7 (8.4-10.2) mg/dL Total Bilirubin 1.0 (0.2-1.3) mg/dL AST 29 (14-36) U/L ALT 16 (4-34) U/L Alkaline Phosphatase 45 (38-126) U/L Troponin I (0.000-0.034) ng/mL Total Protein 6.9 (6.3-8.2) g/dL Albumin 4.5 (3.5-5.0) g/dL Amylase 78 (30-110) U/L Lipase 91 (23-300) U/L Urine Color Light Yellow Urine Appearance Clear (Clear) Urine pH 5.5 (5.0-8.0) Ur Specific [place] 1.008 (1.001-1.035) Urine Protein Negative (Negative) Urine Glucose (UA) 3+ H (Negative) Urine Ketones Negative (Negative) Urine Blood Moderate H (Negative) Urine Nitrite Negative (Negative) Urine Bilirubin Negative (Negative) Urine Urobilinogen <2.0 (<2.0) mg/dL Ur Leukocyte Esterase Negative (Negative) Urine RBC 5 (0-5) /hpf Urine WBC <1 (0-5) /hpf Ur Squamous Epith Cells <1 (0-4) /hpf 01/06/20 Range/Units 14:29 WBC (3.8-10.6) k/uL RBC (3.80-5.40) m/uL Hgb (11.4-16.0) gm/dL Hct (34.0-46.0) % MCV (80.0-100.0) fL MCH (25.0-35.0) pg MCHC (31.0-37.0) g/dL RDW (11.5-15.5) % Plt Count (150-450) k/uL Neutrophils % % Lymphocytes % % Monocytes % % Eosinophils % % Basophils % % Neutrophils # (1.3-7.7) k/uL Lymphocytes # (1.0-4.8) k/uL Monocytes # (0-1.0) k/uL Eosinophils # (0-0.7) k/uL Basophils # (0-0.2) k/uL Sodium (137-145) mmol/L Potassium (3.5-5.1) mmol/L Chloride (98-107) mmol/L Carbon Dioxide (22-30) mmol/L Anion Gap mmol/L BUN (7-17) mg/dL Creatinine (0.52-1.04) mg/dL Est GFR (CKD-EPI)AfAm (>60 ml/min/1.73 sqM) Est GFR (CKD-EPI)NonAf (>60 ml/min/1.73 sqM) Glucose (74-99) mg/dL Calcium (8.4-10.2) mg/dL Total Bilirubin (0.2-1.3) mg/dL AST (14-36) U/L ALT (4-34) U/L Alkaline Phosphatase (38-126) U/L Troponin I <0.012 (0.000-0.034) ng/mL Total Protein (6.3-8.2) g/dL Albumin (3.5-5.0) g/dL Amylase (30-110) U/L Lipase (23-300) U/L Urine Color Urine Appearance (Clear) Urine pH (5.0-8.0) Ur Specific [place] (1.001-1.035) Urine Protein (Negative) Urine Glucose (UA) (Negative) Urine Ketones (Negative) Urine Blood (Negative) Urine Nitrite (Negative) Urine Bilirubin (Negative) Urine Urobilinogen (<2.0) mg/dL Ur Leukocyte Esterase (Negative) Urine RBC (0-5) /hpf Urine WBC (0-5) /hpf Ur Squamous Epith Cells (0-4) /hpf Disposition Clinical Impression: Abdominal pain Disposition: HOME SELF-CARE Condition: Good Instructions (If sedation given, give patient instructions): Abdominal Pain (ED) Is patient prescribed a controlled substance at d/c from ED?: No Referrals: Elier Ibrahim MD [Primary Care Provider] - 1-2 days Renaldo Cavazos MD [STAFF PHYSICIAN] - 1-2 days Time of Disposition: 16:13
[2020-01-06 14:47] LABS: Basophils # (A) 0.1 k/uL (0-0.2); Basophils % (A) 1 %; Eosinophils # (A) 0.2 k/uL (0-0.7); Eosinophils % (A) 3 %; HGB 15.3 gm/dL (11.4-16.0); Lymphocytes # (A) 2.6 k/uL (1.0-4.8); Lymphocytes % (A) 36 %; MCH 32.6 pg (25.0-35.0); MCHC 32.6 g/dL (31.0-37.0); Mean Platelet Volume 9.5; Monocytes # (A) 0.5 k/uL (0-1.0); Monocytes % (A) 7 %; Neutrophils # (A) 3.7 k/uL (1.3-7.7); Neutrophils % (A) 52 %; Platelet Count 163 k/uL (150-450); RDW 11.8 % (11.5-15.5); WBC 7.2 k/uL (3.8-10.6)
[2020-01-06 14:48] LABS: Albumin 4.5 g/dL (3.5-5.0); Calcium 9.7 mg/dL (8.4-10.2); Potassium 3.6 mmol/L (3.5-5.1); Total Protein 6.9 g/dL (6.3-8.2)
[2020-01-06 15:02] LABS: Appearance,Urine Clear (Clear); Bilirubin,Urine Negative (Negative); Blood,Urine Moderate (Negative); Color,Urine Light Yellow; Glucose,Urine (UA) 3+ (Negative); Ketones,Urine Negative (Negative); Leukocyte Esterase,Urine Negative (Negative); Nitrite,Urine Negative (Negative); PH, Urine 5.5 (5.0-8.0); Protein,Urine Negative (Negative); RBC,Urine 5 /hpf (0-5); Specific Gravity,Urine 1.008 (1.001-1.035); Squamous Epithelial Cell,Urine <1 /hpf (0-4); Urobilinogen,Urine <2.0 mg/dL (<2.0); WBC,Urine <1 /hpf (0-5)
[2020-01-06] MEDS ORDERED: methylPREDNISolone SOD SUCCI 125 MG/2 ML VIAL IV STA (15:08)
[2020-01-06] MEDS ORDERED: diphenhydrAMINE 50 MG/ML 1 ML VIAL IVP STA (15:08)
[2020-01-06] MEDS ORDERED: FAMOTIDINE 20 MG/2 ML VIAL IV STA (15:08)
--- NOTE | 2020-01-06 15:56 | CT ---
EXAMINATION TYPE: CT abdomen pelvis w con DATE OF EXAM: 01/06/2020 COMPARISON: 02/12/2019 HISTORY: LT side abdomen pain, under ribs x1 month. Pt states pressure like feeling. Pt premedicated CT DLP: 557.7 mGycm Automated exposure control for dose reduction was used. CONTRAST: CT scan of the abdomen pelvis is performed with IV Contrast, patient injected with 100 mL of Isovue 3 00. FINDINGS- LUNG BASES-3 mm subpleural nodule right lower lobe axial image 6 likely benign.. LIVER/GB-postcholecystectomy changes. Common bile duct and intrahepatic ducts demonstrate mild dilati on likely related to postcholecystectomy changes.. PANCREAS- No gross abnormality is seen. SPLEEN- No gross abnormality is seen. ADRENALS- No gross abnormality is seen. KIDNEYS/BLADDER-no hydronephrosis. Tiny 6 mm hyperdense lesion mid posterior left kidney stable. Tiny punctate calcification lower pole right cortex stable.. BOWEL-bowel gas pattern nonspecific. Duodenal diverticulum noted. Appendix normal. LYMPH NODES- No greater than 1cm abdominal or pelvic lymph nodes areappreciated. OSSEOUS STRUCTURES-hypertrophic and degenerative changes of the spine. OTHER- small fat-containing periumbilical hernia. Aorta demonstrates atherosclerotic change but norm al caliber. Correlate for previous hysterectomy IMPRESSION- 1. Stable punctate right renal cortical calcification with no hydronephrosis. 2. Indeterminate hyperdense lesion previously described measuring 6 mm left kidney stable. This could be evaluated with MRI as clinically warranted. 3. Nonspecific bowel gas pattern with no obstruction. 4. Postcholecystectomy changes as discussed above.
[2020-01-06 16:23] VITALS: BP 161/83; PULSE 61; TEMP 98
== END 2020-01-06 16:24 | disposition home or self-care (01) ==
LOC: EC 13:39
DX: E11.65 Type 2 diabetes mellitus with hyperglycemia (principal); N28.9 Disorder of kidney and ureter, unspecified; R63.4 Abnormal weight loss; I10 Essential (primary) hypertension; G43.909 Migraine, unspecified, not intractable, without status migrainosus; R07.9 Chest pain, unspecified; M25.511 Pain in right shoulder; M25.521 Pain in right elbow; M54.9 Dorsalgia, unspecified; Z87.442 Personal history of urinary calculi; Z90.49 Acquired absence of other specified parts of digestive tract; Z90.711 Acquired absence of uterus with remaining cervical stump; Z80.0 Family history of malignant neoplasm of digestive organs; Z79.891 Long term (current) use of opiate analgesic; Z79.899 Other long term (current) drug therapy; Z88.6 Allergy status to analgesic agent; Z91.041 Radiographic dye allergy status
CPT/HCPCS: 36415; 80053; 82150; 83690; 84484; 85025; 81001; 74177; 99284; 96374; 96375 ×2; J1200; J2930; Q9967

== ENCOUNTER → 2022-04-18 | Outpatient (CLI) | payer MEDICARE ==
--- NOTE | 2022-04-18 13:02 | BD ---
EXAMINATION TYPE: Axial Bone Density DATE OF EXAM: 04/18/2022 COMPARISON: NONE CLINICAL HISTORY: 67 year old Female. ICD-10 CODE: M81.0 Age-related osteoporosis without current pa t Height: 62 Weight: 113.7 FRAX RISK QUESTIONS: Alcohol (3 or more units per day): no Family History (Parent hip fracture): no Glucocorticoids (More than 3mos): no (Ex: prednisone, prednisolone, methylprednisolone, dexamethasone, and hydrocortisone). History of Fracture in Adulthood: yes Secondary Osteoporosis: 1. Type 1 Diabetes: no 2. Hyperthyroidism: no 3. Menopause before 45: no 4. Malnutrition: no 5. Chronic liver disease: no Rheumatoid Arthritis: no Current Tobacco Use: no RISK FACTORS HISTORY OF: Surgery to Spine/Hip(right/left)/Wrist (right/left): no Family History of Osteoporosis: yes Active: no Diet low in dairy products/other sources of calcium: yes Postmenopausal woman: yes Lost more than 2 inches in height since high school: no MEDICATIONS: Additional History: EXAM MEASUREMENTS: Bone mineral densitometry was performed using the [employer] System. Bone mineral density as measured about the Lumbar spine is: ----- L1-L4(G/cm2): 1.335 T Score Values are as follows: ----- L1: -0.2 ----- L2: 0.4 ----- L3: 2.1 ----- L4: 2.7 ----- L1-L4: 1.3 Bone mineral density : baseline Bone mineral density about the R hip (g/cm2): 0.821 Bone mineral density about the L hip (g/cm2): 0.826 T Score values are as follows: -----R Neck: -1.6 -----L Neck: -1.5 -----R Total: -1.4 -----L Total: -1.2 Bone mineral density : baseline FRAX%s: The graph provided illustrates a 13.9% chance for a major osteoporotic fx and a 1.9% chance f or the hips probability for fx in 10 years time. IMPRESSION: Osteopenia (T Score between -2.5 and -1). There is slightly increased risk of fracture and the patient may be considered for treatment. Re-Screen 2-5 years. NOTE: T-SCORE=SD OF THE YOUNG ADULT MEAN.
== END | disposition home or self-care (01) ==
LOC: RADBDWWP 09:00
PROVIDERS: ATTEND Psychiatry & Neurology Neurology
DX: M81.0 Age-related osteoporosis without current pathological fracture (principal)
CPT/HCPCS: 77080

== ENCOUNTER → 2023-11-21 | Outpatient (CLI) | payer MEDICARE ==
--- NOTE | 2023-11-24 14:10 | MM ---
Reason for Exam: Screening (asymptomatic). Last mammogram was performed 1 year(s) and 2 month(s) ago. Patient History: Menarche at age 16. First Full-Term at age 28. Hysterectomy at age 49. Postmenopausal. Mother had breast cancer, age 30. Risk Values: Jacque 5 year model risk: 2.1%. NCI Lifetime model risk: 6.8%. Prior Study Comparison: 05/19/2009 Bilateral Screening Mammogram, [facility]. 12/06/2013 Bilateral Screening Mammogram, [facility]. 08/16/2016 Bilateral Diagnostic Mammogram, [facility]. 09/10/2022 Bilateral Screening Mammogram, [facility]. Tissue Density: The breasts are extremely dense, which lowers the sensitivity of mammography. Findings: Analyzed By CAD. Right breast: There is no suspicious group of microcalcifications or new suspicious mass. Benign-appearing calcifications right breast. Left breast: There is no suspicious group of microcalcifications or new suspicious mass. Benign-appearing calcifications left breast. Overall Assessment: Benign, BI-RAD 2 Management: Screening Mammogram of both breasts in [address] [facility] will attempt to contact patient to return for supplemental views and ultrasound if indicated. Patient should continue monthly self-breast exams. A clinical breast exam by your physician is recommended on an annual basis. This exam should not preclude additional follow-up of suspicious palpable abnormalities. Note on Jacque scores and lifetime risk: 1. A Jacque score greater than 3% is considered moderate risk. If this is the case, consider specialist referral to assess eligibility for a risk reducing agent. 2. If overall lifetime risk for the development of breast cancer is 20% or higher, the patient may qualify for future screening with alternating mammogram and breast MRI. Electronically signed and approved by: Charlie Sosa DO
== END | disposition home or self-care (01) ==
LOC: RADMAMWWP 12:52
PROVIDERS: ATTEND Family Medicine
DX: Z12.31 Encounter for screening mammogram for malignant neoplasm of breast (principal); Z80.3 Family history of malignant neoplasm of breast; Z78.0 Asymptomatic menopausal state
CPT/HCPCS: 77063; 77067

== ENCOUNTER → 2024-06-25 | Outpatient (CLI) | payer MEDICARE ==
--- NOTE | 2024-06-25 17:14 | CT ---
EXAMINATION TYPE: CT abdomen pelvis wo con DATE OF EXAM: 06/25/2024 5:02 PM COMPARISON: CT abdomen pelvis most recent from CLINICAL INDICATION: Female, 69 years old with history of R10.12 LEFT UPPER QUADRANT PAIN; LUQ pain a nd pressure TECHNIQUE: Axial CT abdomen pelvis wo con;Sagittal and coronal reformats were created on a separate workstation. Contrast used: mL of , (none if empty) Oral contrast used: without Oral Contrast (none if empty) CT DLP: 219.8 mGycm, Automated exposure control for dose reduction was used. FINDINGS: LOWER CHEST: Unremarkable ABDOMEN LIVER: Unremarkable GALLBLADDER AND BILE DUCTS: The gallbladder is surgically absent. PANCREAS: Unremarkable. SPLEEN: Unremarkable. ADRENAL GLANDS: Unremarkable. KIDNEYS AND URETERS: No evidence of hydronephrosis or renal calculus. The ureters are unremarkable. r tiny hyperdense cyst in the left renal cortex versus calcification measuring 3 mm PELVIS BLADDER: No evidence for wall thickening or mass given limitations of exam. REPRODUCTIVE: The uterus is surgically absent. ABDOMEN & PELVIS STOMACH AND BOWEL: No evidence of bowel obstruction. PERITONEUM/RETROPERITONEUM: No evidence of pneumoperitoneum or free fluid. VASCULATURE: No evidence of aortic aneurysm. MUSCULOSKELETAL: No acute osseous abnormalities mild scoliosis changes. Mild degeneration changes thr oughout the visualized spine. LYMPH NODES: No gross evidence for lymphadenopathy. SOFT TISSUE/ABDOMINAL WALL: Unremarkable IMPRESSION: 1. No evidence for acute process. 2. Left renal cortical calcification versus hyperdense 3 mm cyst. 3. Cholecystectomy changes. [facility], , 06/25/2024 5:12 PM
== END | disposition home or self-care (01) ==
LOC: RADCTMAIN 06-23 11:33
PROVIDERS: ATTEND Family Medicine
DX: Z90.49 Acquired absence of other specified parts of digestive tract (principal); Z98.890 Other specified postprocedural states
CPT/HCPCS: 74176

== ENCOUNTER → 2024-07-08 | Outpatient (CLI) | payer MEDICARE ==
--- NOTE | 2024-07-08 09:11 | MR ---
EXAMINATION TYPE: MR hip LT wo con DATE OF EXAM: 07/08/2024 8:46 AM COMPARISON: CT 06/25/2024 CLINICAL INDICATION: Female, 69 years old with history of M25.552 pain L hip, left hip pain, falls TECHNIQUE: Multiplanar, multisequence images of the left hip were obtained without IV contrast. FINDINGS: Motion artifacts are present. Degenerative disc disease visualized lower lumbar spine with eccentric narrowing along the left-sided disc spaces and reactive Modic type I endplate change. No hip fracture or AVN. Sacrum and SI joints appear intact. Mild degenerative change left SI joint. Mild degenerative joint space narrowing throughout both hips. No significant hip joint effusion. Small focus of susceptibility artifact at the left pubic body probably due to previous postsurgical c hange. The rectus femoris origin as well as the bilateral gluteal and iliopsoas insertions are intact. There is a small intrasubstance tear measuring 6 x 9 mm at the left hamstrings origin. Symmetric course, caliber, and signal intensity of the sciatic nerves. No abnormal fluid collection seen in the pelvis or pelvic adenopathy. IMPRESSION: 1. Mild degenerative change of both hips. Mild left SI joint OA. 2. No hip/pelvic fracture or AVN. 3. Small intrasubstance tear at the left hamstrings origin measuring 6 x 9 mm. 4. Prominent degenerative disc disease in the visualized lower lumbar spine with eccentric disc space loss towards the left and associated Modic type I endplate change. [facility], Workstation: [facility], 07/08/2024 9:08 AM
== END | disposition home or self-care (01) ==
LOC: RADMRIMAIN 07:26
PROVIDERS: ATTEND Psychiatry & Neurology Neurology
DX: M16.0 Bilateral primary osteoarthritis of hip (principal); M51.369 Other intervertebral disc degeneration, lumbar region without mention of lumbar back pain or lower extremity pain; M46.1 Sacroiliitis, not elsewhere classified